=== PATIENT | female | born 1960 | race Caucasian/White ===

== ENCOUNTER → 2016-10-22 | Outpatient (CLI) | payer OTHER ==
--- NOTE | 2016-10-23 08:51 | XR ---
EXAMINATION TYPE: XR chest 2V DATE OF EXAM: 10/22/2016 4:51 PM COMPARISON: NONE HISTORY: Right upper chest heaviness, [id number] TECHNIQUE: Frontal and lateral views of the chest are obtained. FINDINGS: There is no focal air space opacity, pleural effusion, or pneumothorax seen. The cardiac silhouette size is within normal limits. Surgical clips are present in the right upper quadrant. The osseous structures are intact. IMPRESSION: No acute cardiopulmonary process.
== END | disposition home or self-care (01) ==
LOC: RADXRYALE 16:17
PROVIDERS: ATTEND Family Medicine
DX: R07.89 Other chest pain (principal)
CPT/HCPCS: 71020

== ENCOUNTER → 2018-09-07 | Outpatient (CLI) | payer OTHER ==
--- NOTE | 2018-09-07 22:49 | CT ---
EXAMINATION TYPE: CT sinus wo con DATE OF EXAM: 09/07/2018 COMPARISON: NONE HISTORY: Chronic sinusitis per order. Headaches with pain in forehead and back of neck for 2 months p er patient. CT DLP: 603 mGycm. Automated Exposure Control for Dose Reduction was Utilized. TECHNIQUE: CT scan of the sinuses is performed without contrast, axial images are obtained, coronal r eformatted images are also reviewed. FINDINGS: There is nonformed right frontal sinus. There are mucous retention cysts or polyps in the i nferior aspect of the bilateral maxillary sinuses. No suspicious opacification or air-fluid levels ar e present. The ostiomeatal complex is patent bilaterally on the coronal images. Nasoseptal is slight ly deviated to right of midline. Visualized portion of mastoid air cells show no abnormal opacification. The globes are intact bilate rally. IMPRESSION: Some chronic bilateral maxillary sinus disease as detailed above. No acute sinusitis not ed.
== END | disposition home or self-care (01) ==
LOC: RADCTMAIN 17:01
PROVIDERS: ATTEND Physician Assistant
DX: J32.0 Chronic maxillary sinusitis (principal)
CPT/HCPCS: 70486

== ENCOUNTER → 2018-10-01 | Outpatient (CLI) | payer OTHER ==
--- NOTE | 2018-10-02 10:12 | MM ---
Reason for exam: screening (asymptomatic). Last mammogram was performed 4 years and 2 months ago. History: Benign ultrasound-guided core biopsy of the right breast, November 12, 2004. Core biopsy of the right breast. Physical Findings: A clinical breast exam by your physician is recommended on an annual basis and results should be correlated with mammographic findings. MG Screening Mammo w CAD Bilateral CC and MLO view(s) were taken. Prior study comparison: August 09, 2014, bilateral MG diagnostic mammo w CAD SYD. March 26, 2013, [facility] DIGITAL RIGHT MAMMOGRAM w/CAD. The breast tissue is heterogeneously dense. This may lower the sensitivity of mammography. There is chronic nodularity in the right breast. No significant changes when compared with prior studies. ASSESSMENT: Benign, BI-RAD 2 RECOMMENDATION: Routine screening mammogram of both breasts in 1 year.
== END | disposition home or self-care (01) ==
LOC: RADMAMWWP 16:52
PROVIDERS: ATTEND Family Medicine
DX: Z12.31 Encounter for screening mammogram for malignant neoplasm of breast (principal)
CPT/HCPCS: 77067

== ENCOUNTER 2019-02-01 12:38 | Emergency (ER) | payer OTHER ==
[2019-02-01 12:43] VITALS: TEMP 98.1
--- NOTE | 2019-02-01 13:14 | ED ---
Upper Extremity HPI <Kevin Bui - Last Filed: 02/01/19 15:12> - General Source: patient, RN notes reviewed Mode of arrival: ambulatory Limitations: no limitations <Jose Chahal - Last Filed: 02/01/19 15:24> - General Chief Complaint: Extremity Injury, Upper Stated Complaint: [facility] - fall, lt arm pain Time Seen by Provider: 02/01/19 12:52 - History of Present Illness Initial Comments: This is a 58-year-old female presents emergency Department with chief complaint of fall, left wrist injury. Patient states that she is on a ladder 2 steps up states that she fell onto the ground striking her left hand and arm region. Patient denies any paresthesias. Patient states is swollen, deformed. There is no head injury no loss conscious. Patient is right-hand dominant. Patient has not taken anything for the pain Does Not Require or Request Any Pain Meds at This Time. Patient Has a Paresthesias. (Jose Chahal) - Related Data Home Medications Medication Instructions Recorded Confirmed Metoprolol Succinate [Toprol XL] 50 mg PO DAILY 12/08/14 02/01/19 Levothyroxine Sodium [Synthroid] 75 mcg PO DAILY 02/01/19 02/01/19 Previous Rx's Medication Instructions Recorded Hydrocodone/Acetaminophen [[place] 1 tab PO Q6HR PRN #12 tab 02/01/19 5-325] Allergies Allergy/AdvReac Type Severity Reaction Status Date / Time Sulfa (Sulfonamide Allergy Rash/Hives Verified 02/01/19 12:48 Antibiotics) Review of Systems ROS Other: All systems not noted in ROS Statement are negative. <Kevin Bui - Last Filed: 02/01/19 15:12> ROS Other: All systems not noted in ROS Statement are negative. <Jose Chahal - Last Filed: 02/01/19 15:24> ROS Statement: Those systems with pertinent positive or pertinent negative responses have been documented in the HPI. Past Medical History Past Medical History: Hypertension, Thyroid Disorder History of Any Multi-Drug Resistant Organisms: None Reported Past Surgical History: Section, Cholecystectomy, Hysterectomy Past Anesthesia/Blood Transfusion Reactions: No Reported Reaction Past Psychological History: No Psychological Hx Reported Smoking Status: Never smoker Past Alcohol Use History: None Reported Past Drug Use History: None Reported - Past Family History Father Family Medical History: Cancer <Jose Chahal - Last Filed: 02/01/19 15:24> General Exam Limitations: no limitations <Jose Chahal - Last Filed: 02/01/19 15:24> Course Vital Signs 02/01/19 02/01/19 02/01/19 12:40 14:02 14:55 Temperature 98.1 F Pulse Rate 60 66 66 Respiratory 18 16 16 Rate Blood Pressure 162/85 171/96 169/92 O2 Sat by Pulse 99 97 99 Oximetry 02/01/19 02/01/19 02/01/19 15:00 15:05 15:10 Temperature Pulse Rate 67 74 66 Respiratory 18 16 16 Rate Blood Pressure 175/88 189/106 170/110 O2 Sat by Pulse 98 100 99 Oximetry 02/01/19 15:18 Temperature Pulse Rate 64 Respiratory 18 Rate Blood Pressure 179/92 O2 Sat by Pulse 99 Oximetry Procedures - Orthopedic Fracture Reduction Fracture #1 Consent Obtained: verbal consent Side: left Fracture Reduction Location: radius Analgesia: procedural sedation Technique: traction/counter-traction Post Reduction X-rays Demonstrate: acceptable reduction Post-Reduction Neuro Exam: intact Post-Reduction Vascular Exam: intact Splint Applied: Yes Patient Tolerated Procedure: well - Procedural Sedation Procedural Sedation Start Time: 15:00 Procedural Sedation Stop Time: 15:30 Indications: fracture/dislocation reduction ASA Class: I Preparation: equipment monitor phototypesetting applied, pulse oximeter, supplemental O2 applied IV Etomidate Dose (mgs): 15 Complications: none Patient Tolerated Procedure: well <Kevin Bui - Last Filed: 02/01/19 15:12> - Orthopedic Splinting/Casting Injury #1 Side: left Upper Extremity Injury Location: short arm, wrist Upper Extremity Immobilizer: sugar tong splint, synthetic pre-padded splint <Jose Chahal - Last Filed: 02/01/19 15:24> Medical Decision Making <Jose Chahal - Last Filed: 02/01/19 15:24> - Medical Decision Making 4-year-old female presented for fall, left wrist injury. Case discussed with on-call orthopedics who recommended reduction of the fracture. This was performed by Dr. Bui. Adequate reduction, patient was placed in a sugar tong. Patient will be follow-up with orthopedics on-call with Dr. Escobedo (Jose Chahal) Disposition <Kevin Bui - Last Filed: 02/01/19 15:12> Is patient prescribed a controlled substance at d/c from ED?: Yes When asked, does pt state using other controlled substances?: No If prescribed controlled substance>3 days was MAPS reviewed?: Prescribed <3 Days If opioid is for acute pain is fill amount 7 days or less?: Yes If Rx opioid, was Start Talking consent form obtained?: Yes Time of Disposition: 15:24 <Jose Chahal - Last Filed: 02/01/19 15:24> Clinical Impression: Closed left arm fracture Disposition: HOME SELF-CARE Condition: Stable Instructions (If sedation given, give patient instructions): Arm Fracture in Adults (ED) Additional Instructions: Please return to the Emergency Department if symptoms worsen or any other concerns. Prescriptions: Hydrocodone/Acetaminophen [[place] 5-325] 1 tab PO Q6HR PRN #12 tab PRN Reason: Pain Referrals: Jose Syed DO [Primary Care Provider] - 1-2 days Moncho Escobedo DO [Medical Doctor] - 1-2 days
--- NOTE | 2019-02-01 13:19 | XR ---
EXAMINATION TYPE: XR wrist complete LT DATE OF EXAM: 02/01/2019 CLINICAL HISTORY: Pain after fall injury today. TECHNIQUE: Frontal, lateral and oblique images of the left wrist are obtained. COMPARISON: None FINDINGS: There is acute comminuted displaced intra-articular fracture through distal radial meta-ep iphysis with impaction and slight dorsal angulation. There is age-indeterminate suspected acute 7 mm avulsion type fracture from the ulnar styloid. The joint spaces in the left wrist appear within norm al limits. Moderate soft tissue swelling at the fracture site is seen. IMPRESSION: Acute comminuted slightly displaced intra-articular fracture through distal radial meta-e piphysis. (Initial encounter closed type post traumatic fracture)
[2019-02-01] MEDS ORDERED: HYDROcodone/APAP 5-325MG 1 EACH TAB PO STA (14:09)
[2019-02-01] MEDS ORDERED: ETOMIDATE 2 MG/ML 10 ML VIAL IV STA (14:40)
--- NOTE | 2019-02-01 15:19 | XR ---
EXAMINATION TYPE: XR wrist limited LT DATE OF EXAM: 02/01/2019 CLINICAL HISTORY: Left wrist fracture. TECHNIQUE: Frontal and lateral images of the left wrist are obtained. COMPARISON: Left wrist x-ray earlier today. FINDINGS: There is no overlying fiberglass cast or splint material which is noted lower radiographic sensitivity. Comminuted mildly displaced intra-articular fracture distal radial meta-epiphysis is red emonstrated with slightly improved alignment after reduction and casting. Acute avulsion fracture fro m ulnar styloid is redemonstrated. Moderate soft tissue swelling along dorsal surface is seen better on prior. IMPRESSION: There is slight improved alignment after reduction and casting.
[2019-02-01] MEDS ORDERED: KETOROLAC 30 MG/ML 1 ML VIAL IVP STA (15:28)
[2019-02-01 15:34] VITALS: BP 164/88; PULSE 65; RESP 16
== END 2019-02-01 16:04 | disposition home or self-care (01) ==
LOC: EC 12:38
DX: S52.572A Other intraarticular fracture of lower end of left radius, initial encounter for closed fracture (principal); I10 Essential (primary) hypertension; E07.9 Disorder of thyroid, unspecified; Z79.899 Other long term (current) drug therapy; Z79.890 Hormone replacement therapy; Z88.2 Allergy status to sulfonamides; W11.XXXA Fall on and from ladder, initial encounter; Y92.69 Other specified industrial and construction area as the place of occurrence of the external cause; Y99.0 Civilian activity done for income or pay
CPT/HCPCS: 25605; 99152; 99153; 99283

== ENCOUNTER → 2020-06-13 | Outpatient (CLI) | payer OTHER ==
--- NOTE | 2020-06-13 21:32 | XR ---
EXAMINATION TYPE: XR shoulder complete RT DATE OF EXAM: 06/13/2020 CLINICAL HISTORY: Pain in proximal right humerus for one year. TECHNIQUE: Three views of the right shoulder are obtained. COMPARISON: None. FINDINGS: Suboptimal study due to underpenetration. There is no acute fracture/dislocation evident i n the right shoulder. Nywx-ya-myhrexff narrowing at acromioclavicular joint. Distal acromion morpholo gy unremarkable. Glenohumeral joint is maintained. The visualized ribs are intact. Overlying bra stra p noted. IMPRESSION: As above.
== END | disposition home or self-care (01) ==
LOC: RADXRYALE 15:34
PROVIDERS: ATTEND Family Medicine
DX: M25.511 Pain in right shoulder (principal)

== ENCOUNTER → 2020-12-21 | Outpatient (CLI) | payer OTHER ==
--- NOTE | 2020-12-22 10:40 | MM ---
Reason for exam: screening (asymptomatic). Last mammogram was performed 2 years and 3 months ago. History: Benign ultrasound-guided core biopsy of the right breast, November 12, 2004. Core biopsy of the right breast. Took hormonal contraceptives for 5 years. Physical Findings: A clinical breast exam by your physician is recommended on an annual basis and results should be correlated with mammographic findings. MG 3D Screening Mammo W/Cad Bilateral CC and MLO view(s) were taken. Prior study comparison: October 01, 2018, bilateral MG screening mammo w CAD. August 09, 2014, bilateral MG diagnostic mammo w CAD SYD. The breast tissue is heterogeneously dense. This may lower the sensitivity of mammography. Benign appearing bilateral calcifications. No significant changes when compared with prior studies. ASSESSMENT: Benign, BI-RAD 2 RECOMMENDATION: Routine screening mammogram of both breasts in 1 year.
== END | disposition home or self-care (01) ==
LOC: RADMAMWWP 14:34
PROVIDERS: ATTEND Family Medicine
DX: Z12.31 Encounter for screening mammogram for malignant neoplasm of breast (principal)
CPT/HCPCS: 77063; 77067

== ENCOUNTER → 2021-07-24 | Outpatient (CLI) | payer OTHER ==
--- NOTE | 2021-07-24 16:31 | XR ---
EXAMINATION TYPE: XR Hip Complete LT DATE OF EXAM: 07/24/2021 COMPARISON: NONE HISTORY: 61 year-old female left hip pain, [id number] TECHNIQUE: 2 views FINDINGS: Osteitis pubis with some sclerosis and subarticular resorption. Left-sided pelvic lymph nodes. Mild m arginal spurring at the left hip. Hip joint spaces relatively maintained. No acute fracture, subluxat ion, or dislocation. IMPRESSION: 1. Osteitis pubis. 2. Mild degenerative spurring of the left hip with preserved joint space. 3. No acute osseous abnormality seen.
== END | disposition home or self-care (01) ==
LOC: RADXRYALE 16:09
PROVIDERS: ATTEND Family Medicine
DX: M76.892 Other specified enthesopathies of left lower limb, excluding foot (principal); M86.8X8 Other osteomyelitis, other site
CPT/HCPCS: 73502

== ENCOUNTER → 2023-04-10 | Outpatient (CLI) | payer OTHER ==
--- NOTE | 2023-04-11 13:57 | MM ---
Reason for Exam: Screening (asymptomatic). Last mammogram was performed 2 year(s) and 4 month(s) ago. Patient History: Menarche at age 14. First Full-Term at age 19. Hysterectomy at age 39. Patient used Hormonal Contraceptives for 5 years. Core Biopsy on the Right side. 11/12/2004, Benign Ultrasound-Guided Core Biopsy on the right side. Risk Values: Yoon 5 year model risk: 2.0%. NCI Lifetime model risk: 7.9%. Prior Study Comparison: 08/09/2014 Bilateral Diagnostic Mammogram, [facility]. 10/01/2018 Bilateral Screening Mammogram, [facility]. 12/21/2020 Bilateral Screening Mammogram, [facility]. Tissue Density: The breast tissue is heterogeneously dense. This may lower the sensitivity of mammography. Findings: Analyzed By CAD. Pattern appears symmetrical and stable. No significant interval change is evident. No suspicious groups of microcalcifications, spiculated or lobular masses, architectural distortion or other secondary signs of malignancy are mammographically apparent. Overall Assessment: Benign, BI-RAD 2 Management: Screening Mammogram of both breasts in 1 year. A negative mammogram report should not preclude additional follow up of suspicious palpable abnormalities. Patient should continue monthly self breast exam. A clinical breast exam by your physician is recommended on an annual basis and results should be correlated with mammographic findings. Electronically signed and approved by: Daljit Gonzalez D.O. Radiologis
== END | disposition home or self-care (01) ==
LOC: RADMAMWWP 07:47
PROVIDERS: ATTEND Family Medicine
DX: Z12.31 Encounter for screening mammogram for malignant neoplasm of breast (principal); Z90.710 Acquired absence of both cervix and uterus
CPT/HCPCS: 77063; 77067

== ENCOUNTER → 2023-04-10 | Outpatient (CLI) | payer OTHER ==
--- NOTE | 2023-04-10 13:01 | US ---
EXAMINATION TYPE: US liver DATE OF EXAM: 04/10/2023 COMPARISON: NONE CLINICAL INDICATION: Female, 62 years old with history of R74.01 ELEVATED LIVER ENZYMES; ELEVATED LFT 'S TECHNIQUE: Multiple sonographic images of the right upper quadrant are obtained. FINDINGS: EXAM MEASUREMENTS: Liver Length: 17.8 cm Gallbladder Wall: Surgically absent CBD: 0.8 cm Right Kidney: 12.9X4.0X4.7 cm Pancreas: Tail obscured by overlying bowel gas. Visualized portions show no gross abnormality. Liver: Mildly heterogeneous and echogenic. Borderline enlarged. No focal lesion seen. Gallbladder: Surgically absent Evidence for sonographic Garcia's sign: No CBD: Mildly dilated Right Kidney: No hydronephrosis. IMPRESSION: 1. Mildly dilated bile duct at 8 mm may be chronic postcholecystectomy change. 2. Heterogeneous liver parenchyma could reflect nonspecific hepatocellular disease or mild fatty infi ltration.
== END | disposition home or self-care (01) ==
LOC: RADUSWWP 07:48
PROVIDERS: ATTEND Family Medicine
DX: K83.8 Other specified diseases of biliary tract (principal); K76.89 Other specified diseases of liver; R74.01 Elevation of levels of liver transaminase levels; R79.89 Other specified abnormal findings of blood chemistry; Z90.49 Acquired absence of other specified parts of digestive tract
CPT/HCPCS: 76705

== ENCOUNTER → 2025-03-23 | Outpatient (CLI) | payer MEDICARE ==
--- NOTE | 2025-03-23 14:36 | MM ---
Reason for Exam: Screening (asymptomatic). Last mammogram was performed 1 year(s) and 11 month(s) ago. Patient History: Menarche at age 14. First Full-Term at age 19. Hysterectomy at age 39. Patient used Hormonal Contraceptives for 5 years. Core Biopsy on the Right side. 11/12/2004, Benign Ultrasound-Guided Core Biopsy on the right side. Risk Values: Yoon 5 year model risk: 2.1%. NCI Lifetime model risk: 7.3%. Prior Study Comparison: 10/01/2018 Bilateral Screening Mammogram, [facility]. 12/21/2020 Bilateral Screening Mammogram, [facility]. 04/10/2023 Bilateral MG 3D screening mammo w/cad, [facility]. Tissue Density: The breasts are heterogeneously dense, which may obscure small masses. Findings: Analyzed By CAD. Right breast: There is no suspicious group of microcalcifications or new suspicious mass. Benign-appearing calcifications right breast. Left breast: There is no suspicious group of microcalcifications or new suspicious mass. Benign-appearing calcifications left breast. Overall Assessment: Benign, BI-RAD 2 Management: Screening Mammogram of both breasts in [address] [facility] will attempt to contact patient to return for supplemental views and ultrasound if indicated. Patient should continue monthly self-breast exams. A clinical breast exam by your physician is recommended on an annual basis. This exam should not preclude additional follow-up of suspicious palpable abnormalities. Note on Yoon scores and lifetime risk: 1. A Yoon score greater than 3% is considered moderate risk. If this is the case, consider specialist referral to assess eligibility for a risk reducing agent. 2. If overall lifetime risk for the development of breast cancer is 20% or higher, the patient may qualify for future screening with alternating mammogram and breast MRI. [facility], , 03/23/2025 2:32 PM. Electronically signed and approved by: Behzad Doyle DO
== END | disposition home or self-care (01) ==
LOC: RADMAMWWP 13:54
PROVIDERS: ATTEND Family Medicine
DX: Z12.31 Encounter for screening mammogram for malignant neoplasm of breast (principal); R92.333 Mammographic heterogeneous density, bilateral breasts; Z92.0 Personal history of contraception
CPT/HCPCS: 77063; 77067